=== PATIENT | female | born 1960 | race Hispanic/Latino ===

== ENCOUNTER → 2018-10-18 | Outpatient (CLI) | payer BC | LOC: PAT 09:00 ==

== ENCOUNTER → 2018-10-24 | Day surgery (SDC) | payer BC ==
[2018-10-18 10:16] VITALS: BMI 27.4
[~2018-10-24] MED LIST: Bupivacaine 0.5% 50 ML IJ ONE; CeFAZolin 1 gm in NS 100ml IVPB ONE; HYDROmorphone 0.5 mg/0.5 ml ISec IVP ONE; HYDROmorphone 0.5 mg/0.5 ml ISec IVP PRN; HYDROmorphone 0.5 mg/0.5 ml ISec ONE; Iohexol 240 (50 ml) ONE; Lactated Ringer's 1,000 ML IV SCH; Midazolam 2 MG/2 ML VIAL ONE; Neostigmine Methylsulfate 3mg/3ml Syringe IV ONE; Oxycodone/Acetaminophen 5/325 mg Tab PO PRN; Propofol 10 mg/ml Inj (20 ML) ONE; Rocuronium 10 mg/ml (5 ml) ONE; Succinylcholine 200 mg/10 ml Inj IV ONE
--- NOTE | 2018-10-24 11:50 | PCM.SURG1 ---
Surgeon's Initial Post Op Note - Surgeon's Notes Surgeon: Dr. De Jesus Car Wash Attendant: Neha Hagan, PGY-2 Type of Anesthesia: General Endo Anesthesia Administered By: Dr Regan Pre-Operative Diagnosis: Symptomatic cholelithiasis Operative Findings: Cholelithiasis, multiple adhesions in abdomen Post-Operative Diagnosis: Cholelithiasis, adhesions intraabdominal Operation Performed: Laparoscopic cholecystectomy Specimen/Specimens Removed: Gallbladder Estimated Blood Loss: EBL {In ML}: 5 Blood Products Given: N/A Drains Used: No Drains Post-Op Condition: Good Date of Surgery/Procedure: 10/24/18 Time of Surgery/Procedure: 11:49
[2018-10-24 13:24] VITALS: PULSE 67; RESP 20; TEMP 97.1; O2SAT 97
--- NOTE | 2018-10-24 15:22 | PCM.OP ---
Operative Report - Operative Report Date of Surgery/Procedure: 10/24/18 Time of Surgery/Procedure: 11:20 Surgeon: Dr. De Jesus Machine Cloth Measurer: Neha Hagan, PGY-2 Anesthesia/Sedation: General endotracheal by Dr. Rosa Pre-Operative Diagnosis: Symptomatic cholelithiasis Post-Operative Diagnosis: Cholelithiasis Indication for Surgery: Intermittent abdominal pain, nausea due to symptomatic cholelithiasis Operative Findings: Intraabdominal adhesions, cholelithiasis Procedure/Operation Description: laparoscopic cholecystectomy Tracie mcintosh is a 58F w/PMH sig for intermittent symptomatic cholelithiasis x 1 yr evaluated in the office. It was determined that patient would benefit from laparoscopic cholecystectomy. All risks and benefits were discussed with patient prior to surgical intervention. Patient was consented for laparoscopic cholecystectomy with possible IOC. Patient was brought into the operating room and laid supine upon the operating table. General endotracheal anesthesia was administered and patient was intubated. The patient was prepped and draped in the usual sterile manner. A time out was performed identifying the patient and procedure. Due to previous surgical interventions, an open Kevin technique was employed in the supraumbilical region. A 12 mm Trocar was introduced and laparoscope was inserted. The abdominal cavity was inspected. No enterotomies were noted, multiple adhesions to the anterior wall were noted in the lower quadrants, few adhesions between the gallbladder and anterior abdominal wall were noted. Subsequently, a 5 mm trocar was introduced in the epigastric area and 2 more 5 mm trocars were placed in the right lateral mid abdomen. The adhesions between the gallbladder and the anterior abdominal wall were divided using the Harmonic. The fundus of the gallbladder was retracted cephalad. The infundibulum was identified and retracted laterally and cauded exposing the cystic triangle. The peritoneum was dissected free from the infundibulum and medial and lateral peritoneal reflections were dissected from the gallbladder. The cystic duct was identified and circumferentially dissected. The cystic artery was identified and circumferentially dissected. The fibrofatty tissue was dissected from the cystic plate. The critical view was obtained. The cystic duct was triply clipped and divided. The cystic artery was triply clipped and divided. The gallbladder was dissected off the liver using the Harmonic and spatula electrocautery was used to obtain hemostasis. The gallbladder was placed in an Endocatch bag and removed from the supraumbilical port. The liver was inspected for bleeding, it was noted to be hemostatic. The abdominal cavity was irrigated and irrigation was removed with suction. The fascia was closed using 4-0 Vicryl on a UR 6 needle in a figure of 8 configuration twice and one simple interrupted to achieve tight closure. The 12 mm trochar skin incision was closed using 4-0 Monocryl in a running subcuticular fashion. All other skin incisions were closed using 4-0 Monocryl simple interrupted sutures. Local anesthetic was infiltrated along all surgical incision sites. Surgical glue was applied. All sponges, sutures and instruments were declared to be correct at the end of the procedure. The patient was extubated and taken to the post anesthesia care unit in stable condition. Estimated Blood Loss: 2cc Blood Replaced: Not indicated Sponge/Instrument Count: Declared to be correct at end of procedure Drains: None Complications: None Specimen: Gallbladder Discharge & Condition: Stable, to d/c to home when meets criteria
[2018-10-24 17:51] VITALS: BP 148/74
== END | disposition home or self-care (01) ==
LOC: SDS 07:49
PROVIDERS: ATTEND Surgery
DX: K80.10 Calculus of gallbladder with chronic cholecystitis without obstruction (principal); K66.0 Peritoneal adhesions (postprocedural) (postinfection)
CPT/HCPCS: 47562; 88304; J0330; J0690; J1170; J2250; J2405; J2704; J2710; J2765; J3010; J7120 ×2; Q9966